=== PATIENT | male | born 1990 | race Caucasian/White ===

== ENCOUNTER 2016-02-29 20:20 | Emergency (ER) | payer OTHER ==
[2016-02-29 20:45] VITALS: BP 121/77; PULSE 104; RESP 16; TEMP 99.4; O2SAT 93
--- NOTE | 2016-02-29 20:48 | UCPHY ---
H & P Patient Type: New Chief Complaint Nursing Narrative: sore throat,fever,chillsweakness, bodyaches for 1day Time Seen by Provider: 02/29/16 20:41 HPI/ROS: CHIEF COMPLAINT: Sore throat HISTORY OF PRESENT ILLNESS: The patient is a 25-year-old healthy man who comes to the Urgent Care complaining of a sore throat and body aches. He states that he has had chills for the last 2 days. He has not had any abdominal pain or vomiting. No headache or diarrhea. He denies shortness of breath. He does have a mild cough. He has not received a flu shot this year. No ear pain, no sinus congestion REVIEW OF SYSTEMS: Constitutional: See HPI EENTM: See HPI Respiratory: denies: cough, shortness of breath Cardiac: denies: chest pain, irregular heart rate, lightheadedness, palpitations Gastrointestinal/Abdominal: denies: abdominal pain, diarrhea, nausea, vomiting, blood streaked stools Genitourinary: denies: dysuria, frequency, hematuria, pain Musculoskeletal: denies: joint pain, muscle pain Skin: denies: lesions, rash, jaundice, bruising Neurological: denies: headache, numbness, paresthesia, tingling, dizziness, weakness Hematologic/Lymphatic: denies: blood clots, easy bleeding, easy bruising Immunologic/allergic: denies: HIV/AIDS, transplant EXAM: GENERAL: Well-appearing, well-nourished and in no acute distress. HEAD: Atraumatic, normocephalic. EYES: Pupils equal round and reactive to light, extraocular movements intact, sclera anicteric, conjunctiva are normal. ENT: TMs normal, nares patent, oropharynx clear without exudates. Moist mucous membranes. NECK: Normal range of motion, supple without lymphadenopathy or JVD. LUNGS: Breath sounds clear to auscultation bilaterally and equal. No wheezes rales or rhonchi. HEART: Regular rate and rhythm without murmurs, rubs or gallops. ABDOMEN: Soft, nontender, normoactive bowel sounds. No guarding, no rebound. No masses appreciated. BACK: No CVA tenderness, no spinal tenderness, step-offs or deformities EXTREMITIES: Normal range of motion, no pitting or edema. No clubbing or cyanosis. NEUROLOGICAL: Cranial nerves II through XII grossly intact. Normal speech, normal gait. 5/5 strength, normal movement in all extremities, normal sensation PSYCH: Normal mood, normal affect. SKIN: Warm, dry, normal turgor, no visible rashes or lesions. Source: Patient Exam Limitations: No limitations - Personal History Current Tetanus Diphtheria and Acellular Pertussis (TDAP): Unsure - Medical/Surgical History Hx Asthma: No Hx Chronic Respiratory Disease: No Hx Diabetes: No Hx Cardiac Disease: No Hx Renal Disease: No Hx Cirrhosis: No Hx Alcoholism: No Hx HIV/AIDS: No Hx Splenectomy or Spleen Trauma: No Other PMH: migraines - Family History Significant Family History: Hypertension - Social History Smoking Status: Never smoked Alcohol Use: Sober Drug Use: None Constitutional: Initial Vital Signs Temperature (C) 37.4 C 02/29/16 20:41 Heart Rate 104 H 02/29/16 20:41 Respiratory Rate 16 02/29/16 20:41 Blood Pressure 121/77 H 02/29/16 20:41 O2 Sat (%) 93 02/29/16 20:41 O2 Delivery Mode Room Air Allergies/Adverse Reactions: gadobenate dimeglumine [From [employer]] Allergy (Intermediate, Verified 20:40) iodine Allergy (Verified 02/29/16 20:40) Home Medications: Medication Instructions Recorded Azithromycin [Zithromax] 250 mg PO DAILY #6 tab 02/29/16 Medical Decision Making ED Course/Re-evaluation: 9:30 p.m. we discussed the patient's test results. He is feeling better after fever control. He is able to hydrate. We discussed hydration and fever control and rest. We discussed attempts at avoiding spreading his infection. I will give him prescription for azithromycin in case his PCR strep returned positive tomorrow. He and his understand and agree with this plan. Differential Diagnosis: Partial list of the Differential diagnosis considered include but were not limited to; influenza, strep throat, viral syndrome, bronchitis and although unlikely based on the history and physical exam, I also considered pneumonia, meningitis, sepsis. I discussed these differential diagnoses and the plan with the patient as well as the usual and expected course. The patient understands that the diagnosis is provisional and that in medicine we are not always correct and that further workup is often warranted. Usual and customary warnings were given. All of the patient's questions were answered. The patient was instructed to return to the emergency department should the symptoms at all worsen or return, otherwise to followup with the physician as we discussed. - Data Points Laboratory Results: 02/29/16 02/29/16 Unknown 20:55 Influenza Typ A,B (DFA) NEGATIVE FOR FLU (NEGATIVE) Group A Strep Screen NEGATIVE (NEGATIVE) Group A Strep DNA Pending Departure - Departure Disposition: Home, Routine, Self-Care Clinical Impression: Viral syndrome Condition: Fair Instructions: Viral Syndrome (ED) Referrals: SATYA PHIPPS [Primary Care Provider] - As per Instructions Prescriptions: Azithromycin [Zithromax] 250 mg PO DAILY #6 tab - PQRS PQRS Measurement: Not applicable
== END 2016-02-29 21:53 | disposition home or self-care (01) ==
LOC: CED 20:20
DX: B34.9 Viral infection, unspecified (principal)
CPT/HCPCS: 87400-PO; 87880-PO; 99204-PO; G0463-PO